=== PATIENT | female | born 1970 | race Two or more races ===

== ENCOUNTER 2017-09-30 08:28 | Emergency (ER) | payer BC, OTHER ==
[~2017-09-30] VITALS: Ht 152.4 cm; Wt 85.8 kg
[2017-09-30 08:29] VITALS: BP 158/92
[2017-09-30] MEDS ORDERED: METHOCARBAMOL 750 MG TABLET ONE (09:55)
[2017-09-30] MEDS ORDERED: KETOROLAC 30 MG/1 ML ONE (09:56)
[2017-09-30] MEDS ORDERED: KETOROLAC 30 MG/1 ML IM ONE (10:00)
[2017-09-30] MEDS ORDERED: METHOCARBAMOL 750 MG TABLET PO ONE (10:00)
== END 2017-09-30 11:07 | disposition home or self-care (01) ==
LOC: ED 10:55
DX: S16.1XXA Strain of muscle, fascia and tendon at neck level, initial encounter (principal); V49.9XXA Car occupant (driver) (passenger) injured in unspecified traffic accident, initial encounter; Y93.89 Activity, other specified; Y92.410 Unspecified street and highway as the place of occurrence of the external cause; Y99.8 Other external cause status; M19.90 Unspecified osteoarthritis, unspecified site
CPT/HCPCS: 72125; 96372; 99284; J1885

== ENCOUNTER 2018-12-08 13:18 | Emergency (ER) | payer MEDICARE, OTHER ==
[~2018-12-08] VITALS: Ht 152.4 cm; Wt 80.6 kg
--- NOTE | 2018-12-08 13:38 | NUR ---
PATIENT PRESENTS TO ED TODAY FOR DIZZINESS, BILAT UPPER EXT PAIN, N/V, GREGORY, CP, WEAKNESS X 3 WEEKS, WORSE PAST 3 DAYS. SUB ACUTE CARE NURSE ON PATIENT. MD AT BEDSIDE, AWAITING MD ORDERS. FAMILY AT BEDSIDE. TRINIDADIAN SPEAKING. CALL LIGHT WITHIN REACH.
[2018-12-08] MEDS ORDERED: OMEP10CA4 PO (13:48)
[2018-12-08 14:10] LABS: BASOPHILS # (AUTO) 0.02 x10^3/uL (0-0.1); BASOPHILS % (AUTO) 0 % (0-1); EOSINOPHILS # (AUTO) 0.09 x10^3/uL (0-0.4); EOSINOPHILS % (AUTO) 2 % (1-7); LYMPHOCYTES # (AUTO) 1.68 x10^3/uL (1-3.4); LYMPHOCYTES % (AUTO) 35 % (22-44); MD NO; MEAN CORPUSCULAR HEMOGLOBIN 30.2 pg (27.0-34.8); MEAN CORPUSCULAR HGB CONC 32.8 g/dL (32.4-35.8); MEAN CORPUSCULAR VOLUME 91.9 fL (80-100); MEAN PLATELET VOLUME 7.4 fL (7.4-10.4); MONOCYTES # (AUTO) 0.55 x10^3/uL (0.2-0.8); MONOCYTES % (AUTO) 12 % (2-9); NEUTROPHILS % (AUTO) 51 % (42-75); PLATELET COUNT 297 x10^3/uL (130-400); RED BLOOD COUNT 4.09 x10^6/uL (3.82-5.3); RED CELL DISTRIBUTION WIDTH 15.5 % (9.6-15.2)
[2018-12-08 14:22] LABS: ALANINE AMINOTRANSFERASE 30 U/L (12-78); ALBUMIN 3.5 g/dL (3.4-5.0); ANION GAP 10 mmol/L (5-15); CALCIUM 8.1 mg/dL (8.5-10.1); CHLORIDE 111 mmol/L (98-107)
[2018-12-08 14:27] LABS: ALKALINE PHOSPHATASE 83 U/L (45-117); CREATININE 0.67 mg/dL (0.55-1.02); TOTAL PROTEIN 7.2 g/dL (6.4-8.2); TROPONIN I < 0.015 ng/mL (0.000-0.045)
[2018-12-08 14:29] LABS: BILIRUBIN,TOTAL < 0.1 mg/dL (0.2-1.0)
--- NOTE | 2018-12-08 14:39 | NUR ---
VS UPDATED IN CHART, RESULTS BACK, CHART UP FOR RECHECK. PATIENT SITTING IN [place] WATCHING TV. GENTRY.
[2018-12-08 15:55] VITALS: BP 100/49
--- NOTE | 2018-12-08 15:58 | NUR ---
TASK RN NOTE: DC ORDERS RECEIVED. PT IS A&O, RESPS EVEN AND UNLABORED. PT DENIES NEED FOR INTERPRETIVE SERVICES AT TIME OF DC, FAMILY IS AT BEDSIDE ASSISTING WITH INTERPRETATION, HOWEVER PT VERBALIZES UNDERSTANDING OF DC INSTRUCTIONS GIVEN BY RN. PT DENIES ANY PAIN, DENIES N/T, CMS INTACT TO BILATERAL UE. NO WEAKNESS NOTED TO UPPER EXTREMITIES, BILATERAL GRASP AND ARM STRENGTH EQUAL. PT DENIES DIZZINESS. PT GIVEN DC INSTRUCTIONS AND SCRIPT, EDUCATED REGARDING ROBAXAN RX. PT AMB TO DC DESK WITH STEADY GAIT ACCOMPANIED BY FAMILY.
== END 2018-12-08 15:59 | disposition home or self-care (01) ==
LOC: ED 14:32
DX: M54.12 Radiculopathy, cervical region (principal); R42 Dizziness and giddiness; I10 Essential (primary) hypertension; M19.90 Unspecified osteoarthritis, unspecified site; Z90.49 Acquired absence of other specified parts of digestive tract
CPT/HCPCS: 36415; 80053; 83690; 84484; 85025; 93005; 99284

== ENCOUNTER 2019-02-12 23:13 | Emergency (ER) | payer MEDICARE ==
[~2019-02-12] VITALS: Ht 152.4 cm; Wt 76.3 kg
[~2019-02-12 23:13] MED LIST: OMEP10CA5 PO
--- NOTE | 2019-02-13 00:43 | NUR ---
PT. TO ROOM FROM LOBBY AT THIS TIME.
--- NOTE | 2019-02-13 00:55 | NUR ---
PT C/O UPPER ABD PAIN SINCE NOVEMBER. C/O NAUSEA AND HEADACHE TODAY. PT STATES SHE HAD A STOMACH BIOPSY IN 2018 AND THE DOCTORS TOLD HER THE CELLS IN HER STOMACH WERE PRECANCEROUS.
[2019-02-13] MEDS ORDERED: MAALOX/HYOSCYAMINE/LIDOCAINE 45 ML BTL ONE (01:23)
[2019-02-13] MEDS ORDERED: HYDROmorphone 1 MG/ML, 1ML VIAL ONE (01:23)
[2019-02-13] MEDS ORDERED: ONDANSETRON 2MG/ML, 2ML ONE (01:23)
[2019-02-13] MEDS ORDERED: FAMOTIDINE 20 MG/2 ML ONE (01:23)
[2019-02-13] MEDS ORDERED: ONDANSETRON 2MG/ML, 2ML IVPush ONE (01:30)
[2019-02-13] MEDS ORDERED: HYDROmorphone 2 MG/ML, 1ML IVPush PRN (01:30)
[2019-02-13] MEDS ORDERED: FAMOTIDINE 20 MG/2 ML IVP ONE (01:30)
[2019-02-13] MEDS ORDERED: SODIUM CHLORIDE FLUSH 10ML SYR IVF ONE (01:30)
[2019-02-13] MEDS ORDERED: MAALOX/HYOSCYAMINE/LIDOCAINE 45 ML BTL PO ONE (01:30)
[2019-02-13 01:39] LABS: BASOPHILS # (AUTO) 0.02 x10^3/uL (0-0.1); BASOPHILS % (AUTO) 0 % (0-1); EOSINOPHILS # (AUTO) 0.07 x10^3/uL (0-0.4); EOSINOPHILS % (AUTO) 1 % (1-7); LYMPHOCYTES # (AUTO) 1.63 x10^3/uL (1-3.4); LYMPHOCYTES % (AUTO) 14 % (22-44); MD NO; MEAN CORPUSCULAR HEMOGLOBIN 29.1 pg (27.0-34.8); MEAN CORPUSCULAR HGB CONC 32.2 g/dL (32.4-35.8); MEAN CORPUSCULAR VOLUME 90.4 fL (80-100); MEAN PLATELET VOLUME 6.9 fL (7.4-10.4); MONOCYTES # (AUTO) 0.84 x10^3/uL (0.2-0.8); MONOCYTES % (AUTO) 7 % (2-9); NEUTROPHILS # (AUTO) 9.08 x10^3/uL (1.8-6.8); NEUTROPHILS % (AUTO) 78 % (42-75); PLATELET COUNT 349 x10^3/uL (130-400); RED BLOOD COUNT 4.59 x10^6/uL (3.82-5.3); RED CELL DISTRIBUTION WIDTH 16.7 % (9.6-15.2)
[2019-02-13 01:48] LABS: ALANINE AMINOTRANSFERASE 49 U/L (12-78); ANION GAP 9 mmol/L (5-15); CALCIUM 9.2 mg/dL (8.5-10.1); CHLORIDE 105 mmol/L (98-107); CREATININE 0.65 mg/dL (0.55-1.02)
[2019-02-13 01:53] LABS: ALKALINE PHOSPHATASE 96 U/L (45-117); BILIRUBIN,TOTAL 0.4 mg/dL (0.2-1.0); TOTAL PROTEIN 8.1 g/dL (6.4-8.2); TROPONIN I < 0.015 ng/mL (0.000-0.045)
--- NOTE | 2019-02-13 02:00 | NUR ---
PT REPORTS HER PAIN HAS IMPROVED AFTER MEDICATIONS
--- NOTE | 2019-02-13 02:20 | NUR ---
Caden patel in ED - 02/13/19 at 0221 by NANCY the pt stated that she did have her evening meds including her insulin last noc.
--- NOTE | 2019-02-13 02:44 | NUR ---
PT AMBULATORY TO THE BATHROOM WITH STEADY GAIT
[2019-02-13 03:16] LABS: MICROSCOPIC AUTO
[2019-02-13 03:28] LABS: CULTURE INDICATED? YES
[2019-02-13 04:03] VITALS: BP 133/70
[2019-02-13] MEDS ORDERED: DIAZEPAM 5 MG TABLET PO ONE (04:30)
[2019-02-13] MEDS ORDERED: DIAZEPAM 5 MG TABLET ONE (04:31)
== END 2019-02-13 04:48 | disposition home or self-care (01) ==
LOC: ED 23:59
DX: G89.29 Other chronic pain (principal); R10.13 Epigastric pain; K21.9 Gastro-esophageal reflux disease without esophagitis; I10 Essential (primary) hypertension; M19.90 Unspecified osteoarthritis, unspecified site
CPT/HCPCS: 36415; 76700; 80053; 81001; 83690; 84484; 85025; 87086; 93005; 96374; 96375; 99284; J1170; J2405; J3490

== ENCOUNTER 2020-05-15 21:27 | Inpatient (IN) | payer MEDICARE, MEDICAID ==
[~2020-05-15] VITALS: Ht 152.4 cm; Wt 58.3 kg
[2020-05-15 22:25] LABS: BASOPHILS % (AUTO) 0 % (0-1); EOSINOPHILS % (AUTO) 1 % (1-7); LYMPHOCYTES % (AUTO) 16 % (22-44); MEAN CORPUSCULAR HEMOGLOBIN 29.4 pg (27.0-34.8); MEAN CORPUSCULAR HGB CONC 32.3 g/dL (32.4-35.8); MEAN PLATELET VOLUME 7.5 fL (7.4-10.4); MONOCYTES % (AUTO) 4 % (2-9); NEUTROPHILS % (AUTO) 78 % (42-75); PLATELET COUNT 337 x10^3/uL (130-400); RED BLOOD COUNT 4.28 x10^6/uL (3.82-5.3); RED CELL DISTRIBUTION WIDTH 15.2 % (9.6-15.2)
[2020-05-15 22:30] LABS: MD NO
[2020-05-15 22:37] LABS: ALANINE AMINOTRANSFERASE 16 U/L (12-78); ALBUMIN 4.2 g/dL (3.4-5.0); ANION GAP 5 mmol/L (5-15); CALCIUM 10.4 mg/dL (8.5-10.1); CHLORIDE 109 mmol/L (98-107); CREATININE 0.52 mg/dL (0.55-1.02)
[2020-05-15 22:39] LABS: ALKALINE PHOSPHATASE 84 U/L (45-117); BILIRUBIN,TOTAL 0.3 mg/dL (0.2-1.0)
[2020-05-15] MEDS ORDERED: ONDANSETRON 2MG/ML, 2ML ONE (23:11)
[2020-05-15] MEDS ORDERED: HYDROmorphone 2 MG/ML, 1ML ONE (23:11)
--- NOTE | 2020-05-15 23:19 | NUR ---
pt to ct
[2020-05-15] MEDS ORDERED: OMNIPAQUE 350 MG/ML, 100ML BOTTLE ONE (23:29)
[2020-05-15] MEDS ORDERED: ONDANSETRON 2MG/ML, 2ML IVPush ONE (23:30)
[2020-05-15] MEDS ORDERED: SODIUM CHLORIDE 0.9% 1,000ML IVBOLUS ONE (23:30)
[2020-05-15] MEDS ORDERED: HYDROmorphone 1 MG/ML, 1ML INJ IV ONE (23:30)
[2020-05-15] MEDS ORDERED: SODIUM CHLORIDE FLUSH 10ML SYR IVF ONE (23:30)
[2020-05-15] MEDS ORDERED: METF500T17 PO (23:53)
--- NOTE | 2020-05-16 00:31 | NUR ---
pt ambulates to bathroom without complication.
[2020-05-16 00:37] LABS: MICROSCOPIC NOT IND
[2020-05-16] MEDS ORDERED: HYDROmorphone 2 MG/ML, 1ML IVPush PRN (01:00)
[2020-05-16] MEDS ORDERED: POLYETHYLENE GLYCOL 17 GM PACKET PO PRN (01:00)
[2020-05-16] MEDS ORDERED: BISACODYL 10 MG SUPP PR PRN (01:00)
[2020-05-16] MEDS ORDERED: ONDANSETRON ODT 4 MG PO PRN (01:00)
[2020-05-16] MEDS ORDERED: ACETAMINOPHEN 325 MG TABLET PO PRN (01:00)
[2020-05-16] MEDS ORDERED: DOCUSATE 100 MG CAPSULE PO PRN (01:00)
[2020-05-16] MEDS ORDERED: LABETALOL 5MG/ML, 20ML IVPush PRN (01:00)
[2020-05-16] MEDS ORDERED: ENALAPRILAT 1.25 MG/ML, 2ML IVPush PRN (01:00)
[2020-05-16] MEDS: HEPARIN 5,000 UNITS/ML, 1ML SQ SCH ×3 (02:02→16:15)
[2020-05-16 02:05] VITALS: BP 115/66
[2020-05-16] MEDS ORDERED: OMNIPAQUE 350 MG/ML, 75ML BOTTLE ONE (04:17)
[2020-05-16 06:14] LABS: ANION GAP 6 mmol/L (5-15); CALCIUM 9.6 mg/dL (8.5-10.1); CHLORIDE 108 mmol/L (98-107)
[2020-05-16 06:15] LABS: CREATININE 0.39 mg/dL (0.55-1.02)
[2020-05-16 07:51] VITALS: BP 109/65
[2020-05-16] MEDS: OMEPRAZOLE 20 MG CAPSULE.DR PO SCH (09:14)
[2020-05-16] MEDS: DOCUSATE 100 MG CAPSULE PO SCH ×2 (12:44→19:53)
[2020-05-16 12:54] VITALS: BP 113/72
[2020-05-16] MEDS: POLYETHYLENE GLYCOL 17 GM PACKET PO SCH (13:42)
[2020-05-16] MEDS ORDERED: POLYETHYLENE GLYCOL 17 GM PACKET PO SCH (14:00)
[2020-05-16] MEDS ORDERED: HYDROmorphone 1 MG/ML, 1ML INJ IV PRN (18:30)
[2020-05-16 19:40] VITALS: BP 104/70
[2020-05-16] MEDS: SODIUM CHLORIDE 0.9% 1,000 ML IV SCH (19:54)
[2020-05-17 00:13] VITALS: BP 100/65
[2020-05-17] MEDS: HEPARIN 5,000 UNITS/ML, 1ML SQ SCH ×3 (01:00→18:26)
[2020-05-17] MEDS: SODIUM CHLORIDE 0.9% 1,000 ML IV SCH (04:39)
[2020-05-17 05:55] LABS: ALBUMIN 3.2 g/dL (3.4-5.0); ANION GAP 5 mmol/L (5-15); CALCIUM 9.2 mg/dL (8.5-10.1); CHLORIDE 111 mmol/L (98-107)
[2020-05-17 05:58] LABS: ALANINE AMINOTRANSFERASE 326 U/L (12-78); ALKALINE PHOSPHATASE 139 U/L (45-117); BILIRUBIN,TOTAL 0.5 mg/dL (0.2-1.0); CREATININE 0.37 mg/dL (0.55-1.02); TOTAL PROTEIN 6.3 g/dL (6.4-8.2)
[2020-05-17 06:37] VITALS: BP 111/69
[2020-05-17 06:42] LABS: BASOPHILS % (AUTO) 1 % (0-1); EOSINOPHILS % (AUTO) 3 % (1-7); LYMPHOCYTES % (AUTO) 48 % (22-44); MEAN CORPUSCULAR HEMOGLOBIN 30.3 pg (27.0-34.8); MEAN CORPUSCULAR HGB CONC 32.7 g/dL (32.4-35.8); MEAN PLATELET VOLUME 7.6 fL (7.4-10.4); MONOCYTES % (AUTO) 9 % (2-9); NEUTROPHILS % (AUTO) 39 % (42-75); PLATELET COUNT 266 x10^3/uL (130-400); RED BLOOD COUNT 3.58 x10^6/uL (3.82-5.3); RED CELL DISTRIBUTION WIDTH 15.4 % (9.6-15.2)
[2020-05-17 06:47] LABS: MD NO
[2020-05-17] MEDS: POLYETHYLENE GLYCOL 17 GM PACKET PO SCH (09:16)
[2020-05-17] MEDS: DOCUSATE 100 MG CAPSULE PO SCH ×2 (09:17→20:41)
[2020-05-17] MEDS: OMEPRAZOLE 20 MG CAPSULE.DR PO SCH (09:17)
[2020-05-17 11:56] LABS: BASOPHILS % (AUTO) 1 % (0-1); EOSINOPHILS % (AUTO) 3 % (1-7); LYMPHOCYTES % (AUTO) 46 % (22-44); MEAN CORPUSCULAR HEMOGLOBIN 29.9 pg (27.0-34.8); MEAN CORPUSCULAR HGB CONC 32.8 g/dL (32.4-35.8); MEAN PLATELET VOLUME 7.4 fL (7.4-10.4); MONOCYTES % (AUTO) 10 % (2-9); NEUTROPHILS % (AUTO) 41 % (42-75); PLATELET COUNT 268 x10^3/uL (130-400); RED BLOOD COUNT 3.83 x10^6/uL (3.82-5.3); RED CELL DISTRIBUTION WIDTH 15.2 % (9.6-15.2)
[2020-05-17 11:59] LABS: MD NO
[2020-05-17 12:02] LABS: ALANINE AMINOTRANSFERASE 299 U/L (12-78); ALBUMIN 3.5 g/dL (3.4-5.0); ANION GAP 5 mmol/L (5-15); CALCIUM 9.5 mg/dL (8.5-10.1); CHLORIDE 113 mmol/L (98-107); CREATININE 0.38 mg/dL (0.55-1.02)
[2020-05-17 12:04] LABS: ALKALINE PHOSPHATASE 137 U/L (45-117); BILIRUBIN,TOTAL 0.4 mg/dL (0.2-1.0); TOTAL PROTEIN 6.9 g/dL (6.4-8.2)
[2020-05-17 12:08] VITALS: BP 112/74
[2020-05-17] MEDS ORDERED: OXYcodone IR 5MG TABLET PO PRN (12:30)
[2020-05-17 12:57] LABS: OCCULT BLOOD NEGATIVE (NEGATIVE)
[2020-05-17] MEDS: SENNA/DOCUSATE TABLET PO SCH (13:35)
[2020-05-17] MEDS: HYDROCORTISONE CRM 0.5%, 30GM TP PRN ×2 (14:29→20:41)
[2020-05-17] MEDS ORDERED: IBUPROFEN 600 MG TABLET PO ONE (17:00)
[2020-05-17 18:34] VITALS: BP 106/72
[2020-05-18 01:12] VITALS: BP 103/68
[2020-05-18] MEDS: HEPARIN 5,000 UNITS/ML, 1ML SQ SCH ×2 (02:16→09:10)
[2020-05-18 04:08] LABS: BASOPHILS % (AUTO) 1 % (0-1); EOSINOPHILS % (AUTO) 4 % (1-7); LYMPHOCYTES % (AUTO) 60 % (22-44); MEAN CORPUSCULAR HGB CONC 33.1 g/dL (32.4-35.8); MEAN PLATELET VOLUME 8.1 fL (7.4-10.4); MONOCYTES % (AUTO) 10 % (2-9); NEUTROPHILS % (AUTO) 24 % (42-75); PLATELET COUNT 264 x10^3/uL (130-400); RED BLOOD COUNT 3.87 x10^6/uL (3.82-5.3); RED CELL DISTRIBUTION WIDTH 15.2 % (9.6-15.2)
[2020-05-18 04:12] LABS: ALANINE AMINOTRANSFERASE 212 U/L (12-78); ALBUMIN 3.4 g/dL (3.4-5.0); ANION GAP 6 mmol/L (5-15); CALCIUM 9.4 mg/dL (8.5-10.1); CHLORIDE 114 mmol/L (98-107); CREATININE 0.41 mg/dL (0.55-1.02)
[2020-05-18 04:14] LABS: ALKALINE PHOSPHATASE 123 U/L (45-117); BILIRUBIN,TOTAL 0.4 mg/dL (0.2-1.0); TOTAL PROTEIN 6.9 g/dL (6.4-8.2)
[2020-05-18 05:07] LABS: MD SCAN
[2020-05-18 06:29] VITALS: BP 94/62
[2020-05-18] MEDS: HYDROCORTISONE CRM 0.5%, 30GM TP PRN (07:53)
[2020-05-18] MEDS ORDERED: POLYETHYLENE GLYCOL 17 GM PACKET PO SCH (09:00)
[2020-05-18] MEDS: DOCUSATE 100 MG CAPSULE PO SCH (09:09)
[2020-05-18] MEDS: SENNA/DOCUSATE TABLET PO SCH (09:09)
[2020-05-18] MEDS: OMEPRAZOLE 20 MG CAPSULE.DR PO SCH (09:17)
[2020-05-18 12:45] VITALS: BP 106/68
== END 2020-05-18 15:39 | disposition home or self-care (01) | DRG 392 ==
LOC: ED 05-16 00:35 → EDIP 05-16 01:03 → 4NW 05-16 02:00 → DCLOUNGE 05-18 15:33
PROVIDERS: ADMIT Student in an Organized Health Care Education/Training Program; ATTEND Student in an Organized Health Care Education/Training Program
DX: A08.4 Viral intestinal infection, unspecified (principal); E86.0 Dehydration; K21.9 Gastro-esophageal reflux disease without esophagitis; F10.20 Alcohol dependence, uncomplicated; E11.9 Type 2 diabetes mellitus without complications; Z93.3 Colostomy status; Z86.73 Personal history of transient ischemic attack (TIA), and cerebral infarction without residual deficits; Z85.038 Personal history of other malignant neoplasm of large intestine; Z82.49 Family history of ischemic heart disease and other diseases of the circulatory system; Z81.1 Family history of alcohol abuse and dependence
CPT/HCPCS: 36415; 74177; 76705; 80048; 80053; 80074; 81003; 82272; 83690; 85025; G0378; J1170; J1644; J2405; Q9967; J7030